=== PATIENT | female | born 1985 | race Caucasian/White ===

== ENCOUNTER → 2020-07-09 09:44 | Outpatient (CLI) | payer MEDICAID, SELFPAY ==
[2020-07-09 11:03] LABS: hCG Titer Quant., Serum < 1 mIU/mL (1-3)
[2020-07-09 11:08] LABS: Hemoglobin A1c 6.1 % (3.8-5.6)
[2020-07-09 11:12] LABS: Estradiol 37.8 pg/mL; Follicle Stimulating Hormone 6.3 mIU/mL; Luteinizing Hormone 2.8 mIU/mL; Prolactin 11.7 ng/mL; T4 Free Direct 0.89 ng/dL (0.76-1.46); Thyroid Stim Hormone (TSH) 1.31 uIU/mL (0.358-3.74)
[2020-07-11 20:34] LABS: HPV APTIMA, High Risk Negative (Negative)
[2020-07-12 20:06] LABS: Testosterone Free 2.8 pg/mL (0.0-4.2)
[2020-07-17 20:10] LABS: 17-Hydroxyprogesterone 49 ng/dL (.)
== END ==
PROVIDERS: Visit Provider Student in an Organized Health Care Education/Training Program
DX: N91.2 Amenorrhea, unspecified (principal); Z12.4 Encounter for screening for malignant neoplasm of cervix
CPT/HCPCS: 36415; 82627; 82670; 83001; 83002; 83036; 83498; 84146; 84402; 84439; 84443; 84702; 87624; 88175; 82626; G0145